=== PATIENT | male | born 1995 | race African-American/Black ===

== ENCOUNTER 2022-09-28 08:35 | Emergency (ER) | payer MEDICAID ==
[~2022-09-28] VITALS: Ht 188 cm; Wt 66.0 kg
[2022-09-28 08:45] VITALS: BP 125/80
[2022-09-28] MEDS ORDERED: CEFTRIAXONE SODIUM 250 MG/VIAL IM ONE (10:30)
[2022-09-28] MEDS ORDERED: DOXY100C5 MT (10:33)
[2022-10-01 04:08] LABS: NEISSERIA GONORRHOEAE NAA Positive (Negative)
== END 2022-09-28 12:34 | disposition home or self-care (01) ==
LOC: ER 08:35
DX: A64 Unspecified sexually transmitted disease (principal)
CPT/HCPCS: 87491; 87591; 96372; 99283; J0696